=== PATIENT | male | born 1990 | race Hispanic/Latino ===

== ENCOUNTER 2020-10-25 22:10 | Emergency (ER) | payer MEDICAID, OTHER ==
[2020-10-25 22:51] LABS: RAPID GROUP A STREP NEGATIVE (NEGATIVE)
[2020-10-25 22:54] LABS: BASOPHILS % (AUTO) 0.3 % (0.0-5.0); EOSINOPHILS % (AUTO) 1.8 % (0.0-8.0); HEMATOCRIT 46.8 % (42-54); LYMPHOCYTES % (AUTO) 43.5 % (21.0-51.0); MEAN CORPUSCULAR HEMOGLOBIN 32.1 pg (27.0-33.0); MEAN CORPUSCULAR HGB CONC 36.8 g/dL (32.0-36.0); MEAN CORPUSCULAR VOLUME 87.5 fL (79-99); MONOCYTES % (AUTO) 7.7 % (3.0-13.0); NEUTROPHILS % (AUTO) 46.4 % (40.0-77.0); PLATELET COUNT (AUTO) 141 K/uL (130-400); RED BLOOD CELL COUNT(AUTO) 5.35 MIL/uL (4.50-6.20); RED CELL DISTRIBUTION WIDTH 12.2 % (11.0-15.5); WHITE BLOOD COUNT (AUTO) 6.7 K/uL (4.8-10.8)
[2020-10-25 23:04] LABS: CREATININE 1.4 mg/dL (0.5-1.5); POTASSIUM 4.5 mmol/L (3.5-5.1)
[2020-10-25 23:08] LABS: ALBUMIN 4.5 g/dL (3.5-5.0); BILIRUBIN,TOTAL 0.7 mg/dL (0.2-1.0)
== END 2020-10-25 23:30 | disposition home or self-care (01) ==
LOC: EDH 22:10
DX: B34.9 Viral infection, unspecified (principal); Z20.828 Contact with and (suspected) exposure to other viral communicable diseases
CPT/HCPCS: 36415; 71045; 80053; 82550; 84484; 85025; 87426; 87804 ×2; 87880; 93005; 99285; U0003

== ENCOUNTER 2025-05-21 17:48 | Emergency (ER) | payer BC, OTHER ==
[~2025-05-21] VITALS: Ht 170.2 cm; Wt 83.9 kg
[2025-05-21 19:07] LABS: BASOPHILS # (AUTO) 0.02 K/uL (0.00-0.20); BASOPHILS % (AUTO) 0.4 % (0.0-5.0); EOSINOPHILS # (AUTO) 0.17 K/uL (0.00-0.70); HEMATOCRIT 42.3 % (42-54); IMMATURE GRANULOCYTE ABSOLUTE 0.01 K/uL (0-1); LYMPHOCYTES # (AUTO) 2.1 K/uL (1.0-4.8); LYMPHOCYTES % (AUTO) 37.8 % (21.0-51.0); MEAN CORPUSCULAR HEMOGLOBIN 32.4 pg (27.0-33.0); MEAN CORPUSCULAR HGB CONC 36.9 g/dL (32.0-36.0); MEAN CORPUSCULAR VOLUME 87.9 fL (79-99); MONOCYTES # (AUTO) 0.5 K/uL (0.1-1.0); MONOCYTES % (AUTO) 8.8 % (3.0-13.0); NEUTROPHILS # (AUTO) 2.8 K/uL (1.8-7.7); NEUTROPHILS % (AUTO) 49.8 % (40.0-77.0); PLATELET COUNT (AUTO) 141 K/uL (130-400); RED BLOOD CELL COUNT(AUTO) 4.81 MIL/uL (4.50-6.20); RED CELL DISTRIBUTION WIDTH 12.1 % (11.0-15.5); WHITE BLOOD COUNT (AUTO) 5.7 K/uL (4.8-10.8)
[2025-05-21 19:14] LABS: CREATININE 1.1 mg/dL (0.5-1.3)
[2025-05-21] MEDS: HYDROcodone/APAP 5/325 1 TAB TABLET PO STA (19:25)
--- NOTE | 2025-05-21 19:36 | HMCIMG ---
CT HEAD WITHOUT CONTRAST INDICATION: Seizure TECHNIQUE: Noncontrast axial helical CT images from the vertex through the skull base using 5 mm slice thickness without contrast material. CT was performed with one or more of the following dose reduction techniques: Automated exposure control, adjustment of the mA and/or kV according to patient size, or use of iterative reconstruction technique. COMPARISON: None FINDINGS: The cerebral and cerebellar hemispheres are age-appropriate in appearance. No evidence for abnormal extra-axial fluid collections or masses. The ventricles and sulci are normal in size and configuration. No evidence for intracranial parenchymal, epidural, or subdural hemorrhage, mass effect or midline shift. The garcia-white matter differentiation is well preserved. No secondary evidence to suggest acute ischemia. The brainstem and cerebellum appear normal. The visualized orbits appear unremarkable. The visible paranasal sinuses and mastoid air cells are clear. The calvarium appears normal. IMPRESSION: No acute intracranial process identified.
--- NOTE | 2025-05-21 19:46 | ERN ---
ED Note History of Present Illness Stated Complaint: SEIZURE LAST WEEKEND/ HEADACHE RT EYE TENSE Chief Complaint: Headache Time Seen by MD: 17:51 Time Seen by Midlevel: 17:58 Dictation: 34-year-old male coming in with complaints of a headache and right eye pain for one week. Patient states one week ago he had a seizure. Denies any trauma states he was sitting down and just began to have a seizure so he laid down. Patient states it seizure started after he was throwing up. Patient states he has been having on and off seizures since September. Has already been evaluated at another ER and was sent to an urologist but has not follow up. Does not take any medication, denies any drug use. Denies any nausea, vomiting, fever, neck pain or neck stiffness. No meningeal signs. Allergies: Coded Allergies: No Known Allergies (Unverified Allergy, Unknown, 10/25/20) Past Medical History Past Medical History: Hypertension, Seizure Surgical History: None Review of System Dictation Constitutional: Negative for fever,chills, and weight loss Eyes: Negative for injury, pain,redness, and discharge ENT: Negative for injury,pain or swelling Cardiovascular: Negative for chest pain, palpitations, and edema Respiratory: Negative for shortness of breath, cough, and wheezing, Abdomen/GI: Negative for abdominal pain, nausea, vomiting, diarrhea, and constipation Back: Negative for injury and pain : Negative for injury, bleeding and discharge MS/Extremity: Negative for injury and deformity Skin: Negative for rash, and discoloration Neuro: Positive for headache, no weakness, no numbness, no tingling, and no seizure Psych: Negative for suicide ideation, homicidal ideation, and hallucinations Review of Systems: was completed Initial Vital Sign VS Vital Signs Date Time Temp Pulse Resp B/P (MAP) Pulse Ox O2 Delivery O2 Flow Rate FiO2 05/21/25 17:51 98.1 76 16 127/91 97 Room Air 0 Physical Exam Dictation General: awake, alert, NAD Head/Face: Normocephalic, atraumatic Eyes: PERRL, EOMI, vision at baseline ENT: oral cavity clear, TMs clear, no signs of infection Neck: Trachea midline, supple, no nuchal rigidity Cardiovascular: RRR, normal S1/S2, No MRGs, no JVD Respiratory: CTAB, no respiratory distress, No rales or wheezes Abdomen: Soft, non-tender, non-distended, normal bowel sounds, no guarding or rebound. Skin: Warm, dry, normal turgor, no rash MS/Extremity: Pulses equal, no cyanosis, neurovascular intact, FROM Neuro: COAx4, GCS 15, strength 5/5, CN 2-12 intact, normal cerebellar exam, normal gait, Psych: Normal behavior, mood, and affect normal Results (Laboratory/Radiology) Laboratory/Radiology Laboratory Tests Test 05/21/25 18:55 White Blood Count 5.7 K/uL (4.8-10.8) Red Blood Count 4.81 MIL/uL (4.50-6.20) Hemoglobin 15.6 g/dL (14.0-18.0) Hematocrit 42.3 % (42-54) Mean Corpuscular Volume 87.9 fL (79-99) Mean Corpuscular Hemoglobin 32.4 pg (27.0-33.0) Mean Corpuscular Hemoglobin Concent 36.9 g/dL (32.0-36.0) H Red Cell Distribution Width 12.1 % (11.0-15.5) Platelet Count 141 K/uL (130-400) Mean Platelet Volume 11.7 fL (7.5-10.5) H Immature Granulocyte % (Auto) 0.2 % (0-1) Neutrophils (%) (Auto) 49.8 % (40.0-77.0) Lymphocytes (%) (Auto) 37.8 % (21.0-51.0) Monocytes (%) (Auto) 8.8 % (3.0-13.0) Eosinophils (%) (Auto) 3.0 % (0.0-8.0) Basophils (%) (Auto) 0.4 % (0.0-5.0) Neutrophils # (Auto) 2.8 K/uL (1.8-7.7) Lymphocytes # (Auto) 2.1 K/uL (1.0-4.8) Monocytes # (Auto) 0.5 K/uL (0.1-1.0) Eosinophils # (Auto) 0.17 K/uL (0.00-0.70) Basophils # (Auto) 0.02 K/uL (0.00-0.20) Absolute Immature Granulocyte (auto 0.01 K/uL (0-1) Nucleated Red Blood Cells 0.0 % (0.0-0.19) Red Blood Cell Morphology See comments Sodium Level 138 mmol/L (136-145) Potassium Level 4.0 mmol/L (3.5-5.1) Chloride Level 102 mmol/L (101-111) Carbon Dioxide Level 30 mmol/L (21-32) Blood Urea Nitrogen 18 mg/dL (7-18) Creatinine 1.1 mg/dL (0.5-1.3) Glomerular Filtration Rate Calc 91 mL/min (>90) Random Glucose 101 mg/dL (70-105) Total Calcium 9.0 mg/dL (8.5-10.1) Labs Reviewed?: Yes CT Scan Comment: [place] [id number] [id number] IMAGING REPORT Signed PATIENT: ALBERTO BLAIR MR#: [id number] : 1990 SEX: M AGE: 34 LOCATION: ED ORDER 20 STATUS: REG REPORT#: [id number] SERVICE 18 REASON: seizure ORDERING PHYSICIAN: KELLEY HUNTER NP PROCEDURE: HEAD WO - CT HEAD/BRAIN W/O CONTRAST CT HEAD WITHOUT CONTRAST INDICATION: Seizure TECHNIQUE: Noncontrast axial helical CT images from the vertex through the skull base using 5 mm slice thickness without contrast material. CT was performed with one or more of the following dose reduction techniques: Automated exposure control, adjustment of the mA and/or kV according to patient size, or use of iterative reconstruction technique. COMPARISON: None FINDINGS: The cerebral and cerebellar hemispheres are age-appropriate in appearance. No evidence for abnormal extra-axial fluid collections or masses. The ventricles and sulci are normal in size and configuration. No evidence for intracranial parenchymal, epidural, or subdural hemorrhage, mass effect or midline shift. The garcia-white matter differentiation is well preserved. No secondary evidence to suggest acute ischemia. The brainstem and cerebellum appear normal. The visualized orbits appear unremarkable. The visible paranasal sinuses and mastoid air cells are clear. The calvarium appears normal. IMPRESSION: No acute intracranial process identified. DICTATED BY: MILAD CLAY MD DATE: 05/21/251932 ELECTRONICALLY SIGNED BY: MILAD CLAY MD DATE: 05/21/251935 ED Course ED Course Orders Procedure Category Date Status Time Cbc With Differential LAB 05/21/25 Complete 18:19 Basic Metabolic Panel LAB 05/21/25 Complete 18:19 Ct Head/Brain W/O CT 05/21/25 Resulted Contrast 18:19 Hydrocodone/Apap PHA 05/21/25 Complete 5/325 (Nemo 5/325mg) 18:19 Drug Screen Urine LAB 05/21/25 Logged 18:19 Current Medications Medications (Trade) Dose Ordered Sig/Elvi Route PRN Reason Start Time Stop Time Status Last Admin Dose Admin Acetaminophen/ Hydrocodone Bitart (NORco 5/325MG) 1 tab ONCE STAT PO 05/21/25 18:19 05/21/25 18:22 DC 05/21/25 19:25 Vital Signs Date Time Temp Pulse Resp B/P (MAP) Pulse Ox O2 Delivery O2 Flow Rate FiO2 05/21/25 17:51 98.1 76 16 127/91 97 Room Air 0 Medical Decision Making MDM MDM: 34-year-old male coming in with complaints of a headache and right eye pain for one week. Patient states one week ago he had a seizure. Denies any trauma states he was sitting down and just began to have a seizure so he laid down. Patient states it seizure started after he was throwing up. Patient states he has been having on and off seizures since September. Has already been evaluated at another ER and was sent to an urologist but has not follow up. Does not take any medication, denies any drug use. Denies any nausea, vomiting, fever, neck pain or neck stiffness. No meningeal signs. Blood work is unremarkable. CT scan does not show any evidence of acute pathology. Patient therefore will be discharged to follow up outpatient with PCP and with a specialist. Differential diagnosis: Electrolyte abnormality, drug use, brain mass Rationale: Tests considered and ordered secondary to shared decision making include: Previous outside records reviewed: Old ER visits. Risk of complication and/or morbidity or mortality of patient management: None Medications-Per medication reconciliation Need for hospitalization: Patient does not meet criteria for hospitalization. Need for emergency major/minor surgery: No There are no social concerns with this patient. Prescription drug management Prescriptions will include symptomatic care Patient's prior external medical records from other ER visits were reviewed by me as indicated. Prior testing and results from previous visits were reviewed. Prior tests were taken into account with medical decision making and resource utilization, independent historian/historians were used to obtain complete me dical history. I independently interpreted the test that were performed, results were reviewed by me and considered findings on radiology if ordered. Medical management and examination interpretation discussions were had by me with other qualified healthcare professionals as indicated for the patient's care. DX & DISP Disposition: Discharge Departure Impression: Primary Impression: Headache Additional Impression: History of seizures Condition: Stable Additional Instructions: Your lab work is unremarkable, your CT scan shows no acute findings. You need to follow up with your primary doctor and with a neurologist. You need to be further evaluated and possibly placed on seizure medications once he had been evaluated by a specialist. Return to the hospital if you have any worsening symptoms. Referrals: SELF,REFERRAL (PCP) RK ZHONG MD Time of Disposition: 19:45 I have reviewed the case, and I agree with, Diagnosis and Plan KELLEY HUNTER NP May 21, 2025 19:46
[2025-05-21 19:53] VITALS: BP 125/85; PULSE 75; RESP 16; TEMP 98.3; O2SAT 98
[2025-05-21 19:56] LABS: AMPHET/METH SCREEN,URINE NEGATIVE (NEGATIVE); BARBITURATE SCREEN, URINE NEGATIVE (NEGATIVE); BENZODIAZEPINES SCREEN,URINE NEGATIVE (NEGATIVE); CANNABINOID SCREEN,URINE NEGATIVE (NEGATIVE); COCAINE SCREEN,URINE NEGATIVE (NEGATIVE); OPIATE SCREEN,URINE NEGATIVE (NEGATIVE); PHENCYCLIDINE SCREEN,URINE NEGATIVE (NEGATIVE)
== END 2025-05-21 20:03 | disposition home or self-care (01) ==
LOC: EDH 17:48
DX: R51.9 Headache, unspecified (principal); I10 Essential (primary) hypertension; R56.9 Unspecified convulsions
CPT/HCPCS: 36415; 70450; 80048; 80305; 85025; 99284